=== PATIENT | male | born 1945 | race American Indian/Alaskan Native ===

== ENCOUNTER 2016-11-08 14:30 | Emergency (ER) | payer MEDICARE, OTHER ==
[2016-11-08 14:43] VITALS: BP 107/64
--- NOTE | 2016-11-08 16:13 | Emergency Department Report ---
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 Patient states he has a primary care doctor that takes care of him Dr. 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 Patient states he has not been taking his cholcris for the past week but took a dose today when he started to feel some pain. Patient states he went to his metal sprayer production yesterday but she was closed. She states pain is throbbing in nature and worsened with walking. Patient states when he walks he feels the pain a bit more.Patient also states he is a diabetic on medication as wall as tension on medication. Patient denies fever/chills/nausea/vomiting/abdominal pain/chest pain/and no other Problems. ED Past Medical Hx - Past Medical History Hx Hypertension: Yes Hx Heart Attack/AMI: Yes (2003) Hx Diabetes: Yes Hx GERD: Yes Hx Renal Disease: No Hx Arthritis: Yes Hx Seizures: No Hx Asthma: Yes (BREATHING [place] PRN) Hx COPD: Yes Additional medical history: gout - Surgical History Hx Pacemaker: No Hx Internal Defibrillator: No Additional Surgical History: cardiac ablation, hernia surg and epididymis surgery. PROSTATE SURGERY - Social History Smoking Status: Former Smoker Substance Use Type: Alcohol, Prescribed - Medications Home Medications: Home Medications Medication Instructions Recorded Confirmed Last Taken Type ALBUTEROL Inhaler [ProAir HFA 2 puff IH QID PRN 09/08/13 08/21/14 07/21/14 History Inhaler] Aspirin [Aspirin BABY CHEW TAB] 81 mg PO QDAY 09/08/13 08/14/14 02/28/14 History Atenolol [Tenormin] 50 mg PO DAILY 09/08/13 08/21/14 08/21/14 05:15 History Fluticasone/Salmeterol [Advair 1 puff IH BID 09/08/13 08/21/14 08/18/14 History Diskus 250-50 mcg] Metformin HCl [metFORMIN ER] 1,000 mg PO QDAY 09/08/13 08/21/14 08/20/14 07:30 History Sildenafil Citrate [Viagra] 100 mg PO QDAY PRN 09/08/13 08/21/14 08/15/14 History Tiotropium [Spiriva] 18 mcg IH QDAY 09/08/13 08/21/14 08/20/14 History Valsartan [Diovan] 320 mg PO DAILY 09/08/13 08/21/14 08/21/14 05:15 History Allopurinol [Zyloprim] 300 mg PO QDAY 11/29/13 08/14/14 04/24/14 History Cyanocobalamin (Vitamin B-12) 1 1000units IJNOT IV [id number] 08/14/14 08/14/14 07/03/14 History [B-12] Esomeprazole Magnesium [NexIUM] 1 tab PO DAILY 08/14/14 08/21/14 08/20/14 History Fexofenadine/Pseudoephedrine 1 tab PO DAILY 08/14/14 08/21/14 08/20/14 History [Chelsey-D 24 Hour Tablet] amLODIPine [Norvasc] 10 mg PO DAILY 08/14/14 08/21/14 08/21/14 05:15 History predniSONE [Deltasone] 10 mg PO QDAY #5 tab 11/08/16 Unknown Rx traMADol [Ultram 50 MG tab] 50 mg PO Q6HR PRN #30 tablet 11/08/16 Unknown Rx ED Review of Systems ROS: Stated complaint: GOUT Other details as noted in HPI Constitutional: denies: chills, fever Eyes: denies: eye pain, eye discharge, vision change ENT: denies: ear pain, throat pain Respiratory: denies: cough, shortness of breath, wheezing Cardiovascular: denies: chest pain, palpitations Endocrine: no symptoms reported Gastrointestinal: denies: abdominal pain, nausea, diarrhea, melena Genitourinary: denies: urgency, dysuria, hematuria, testicular pain, testicular mass Musculoskeletal: arthralgia. denies: back pain, joint swelling Skin: denies: rash, lesions Neurological: denies: headache, weakness, numbness, paresthesias, confusion Psychiatric: denies: anxiety, depression Hematological/Lymphatic: denies: easy bleeding, easy bruising Physical Exam - Physical Exam Vital Signs: Vital Signs 11/08/16 14:37 Temperature 98.5 F Pulse Rate 66 Respiratory 17 Rate Blood Pressure 107/64 O2 Sat by Pulse 95 Oximetry Physical Exam: GENERAL: Alert and oriented x3, no apparent distress, Normal Gait, atraumatic. HEAD: Head is normocephalic and a-traumatic. EYES: Extra ocular muscles are intact. Pupils are equal, round, and reactive to light and accommodation. EARS: symetrical, atraumatic, non tender, ear canal clear and moderate cerumen, tympanic membrance non inflamed. gross auditory nml bilaterally. NOSE: Nose symetrical, Nontender,Nares appeared normal. MOUTH:Mouth is well hydrated and without lesions. Patent airways. NECK: Supple. Non edematous, No carotid bruits. No lymphadenopathy or thyromegaly. LUNGS: Symetrical with respiration, No wheezing, no rales or crackles, CTAB. HEART: S1, S2 present, regular rate and rhythm without murmur, no rubs, no gallops. ABDOMEN: No organomegaly was noted,Positive bowel sounds, soft, and non- distended. . Nontender to palpation on all Quadrants, NO CVA tenderness. EXTREMITIES/MUSCULOSKELETAL: No cyanosis, clubbing, rash, lesions or edema. Full ROM bilaterally. UE/LE Pulses 2+ bilaterally. LE and UE 5+ strength bilaterally. Knees nontender to palpation. Patient has full range of motion in the knees and ankle. Nontender to palpation of the ankle. Knees nonedematous, nonerythematous, no fluid palpated. NEUROLOGIC: No focal Deficit, Cranial nerves II through XII are grossly intact. No loss of sensation, PSYCHIATRIC: Mood is congruent with affect, denies suicidal or homicidal ideations. SKIN: Warm and dry, No lesions, No ulceration or induration present. ED Course Vital Signs 11/08/16 14:37 Temperature 98.5 F Pulse Rate 66 Respiratory 17 Rate Blood Pressure 107/64 O2 Sat by Pulse 95 Oximetry ED Medical Decision Making - Medical Decision Making 71-year-old male presents with knee pain. ED course: Patient received Solu-Medrol 40 mg IM and tramadol for pain. Discussed with the patient to follow up with metal sprayer production Patient states he we will follow up and call the office on Thursday to make an appointment. Discussed with patient resting and no stress on the foot. Discussed to medication of a couple of days of prednisone and tramadol for pain. Discussed the patient's symptoms worsen or new symptoms arise to return to ED. Patient is in no acute distress or respiratory distress. Vital signs are stable. Critical care attestation.: If time is entered above; I have spent that time in minutes in the direct care of this critically ill patient, excluding procedure time. ED Disposition Clinical Impression: Knee pain, chronic Qualifiers: Laterality: left Qualified Code(s): M25.562 - Pain in left knee; G89.29 - Other chronic pain Disposition: DISCHARGED TO HOME OR SELFCARE Is pt being admited?: No Does the pt Need Aspirin: No Condition: Stable Instructions: Arthralgia (ED) Additional Instructions: Follow-up with her primary care physician. 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 Prescriptions: predniSONE [Deltasone] 10 mg PO QDAY #5 tab traMADol [Ultram 50 MG tab] 50 mg PO Q6HR PRN #30 tablet PRN Reason: Pain Referrals: PRIMARY MD ANA MARÍA [Primary Care Provider] - 3-5 Days DRE ATKINSON MD [Referring] - 3-5 Days Forms: Work/School Release Form(ED), Accompanied Note Time of Disposition: 17:28
[2016-11-08] MEDS ORDERED: ULTRAM PO ONE (16:36)
== END 2016-11-08 17:48 | disposition home or self-care (01) ==
LOC: ED 14:30
DX: M25.562 Pain in left knee (principal); G89.29 Other chronic pain; I10 Essential (primary) hypertension; I25.2 Old myocardial infarction; E11.9 Type 2 diabetes mellitus without complications; K21.9 Gastro-esophageal reflux disease without esophagitis; M19.90 Unspecified osteoarthritis, unspecified site; J45.909 Unspecified asthma, uncomplicated; J44.9 Chronic obstructive pulmonary disease, unspecified; Z87.891 Personal history of nicotine dependence; Z79.82 Long term (current) use of aspirin
CPT/HCPCS: 96372; 99282; J2920

== ENCOUNTER 2017-01-03 13:31 | Emergency (ER) | payer MEDICARE, OTHER ==
[2017-01-03] MEDS ORDERED: TORADOL IM ONE (17:24)
[2017-01-03] MEDS ORDERED: DECADRON IM STA (17:24)
[2017-01-03] MEDS ORDERED: PERCOCET 5/325 PO ONE (17:24)
--- NOTE | 2017-01-03 18:51 | Emergency Department Report ---
Entered by RICHARD CRUZ, acting as scribe for BROOKE GUZMAN PA. ED Lower Extremity HPI - General Chief Complaint: Extremity Injury, Lower Stated Complaint: LEFT KNEE PAIN Time Seen by Provider: 01/03/17 16:19 Source: patient, family Mode of arrival: Ambulatory Limitations: No Limitations, Physical Limitation - History of Present Illness Initial Comments: 71 y/o male with a PMHx HTN, ID, IDDM, GERD, arthritis, asthma, COPD, and gout presents to the ED c/o a gout flare-up in left knee that began yesterday morning at 03:00. Rates associated left knee pain a 9/10 in severity. Associated symptoms include left knee swelling, but he denies numbness, tingling , fever, and chills. Notes pain worsens with weight bearing, movement, and palpation. Notes previous Hx of similar symptoms in left knee. He reports his last gout flare-up was 2 months ago. Patient states that he is aware of the diet to avoid gout flare-ups, but notes he ate calhoun 2 days ago. He states he is ambulatory with a can due to left knee pain. Denies taking any medication for pain. Allergic to ampicillin and penicillin. Patient said he has Colcrys at home but physician had called and told them to stop it. MD Complaint: other (left knee gout flare-up) Onset/Timin -: days(s) Injury: Knee: Left (pain and swelling. 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 denies: snap/pop sensation, numbness, tingling - Related Data Home Medications Medication Instructions Recorded Confirmed Last Taken ALBUTEROL Inhaler [ProAir HFA 2 puff IH QID PRN 09/08/13 08/21/14 07/21/14 Inhaler] Aspirin [Aspirin BABY CHEW TAB] 81 mg PO QDAY 09/08/13 08/14/14 02/28/14 Atenolol [Tenormin] 50 mg PO DAILY 09/08/13 08/21/14 08/21/14 05:15 Fluticasone/Salmeterol [Advair 1 puff IH BID 09/08/13 08/21/14 08/18/14 Diskus 250-50 mcg] Metformin HCl [metFORMIN ER] 1,000 mg PO QDAY 09/08/13 08/21/14 08/20/14 07:30 Sildenafil Citrate [Viagra] 100 mg PO QDAY PRN 09/08/13 08/21/14 08/15/14 Tiotropium [Spiriva] 18 mcg IH QDAY 09/08/13 08/21/14 08/20/14 Valsartan [Diovan] 320 mg PO DAILY 09/08/13 08/21/14 08/21/14 05:15 Allopurinol [Zyloprim] 300 mg PO QDAY 11/29/13 08/14/14 04/24/14 Cyanocobalamin (Vitamin B-12) 1 1000units IJNOT IV [id number] 08/14/14 08/14/14 07/03/14 [B-12] Esomeprazole Magnesium [NexIUM] 1 tab PO DAILY 08/14/14 08/21/14 08/20/14 Fexofenadine/Pseudoephedrine 1 tab PO DAILY 08/14/14 08/21/14 08/20/14 [Chelsey-D 24 Hour Tablet] amLODIPine [Norvasc] 10 mg PO DAILY 08/14/14 08/21/14 08/21/14 05:15 Previous Rx's Medication Instructions Recorded Last Taken Type predniSONE [Deltasone] 20 mg PO QDAY #10 tab 01/03/17 Unknown Rx traMADol [Ultram 50 MG tab] 50 mg PO Q6HR PRN #20 tablet 01/03/17 Unknown Rx Allergies Allergy/AdvReac Type Severity Reaction Status Date / Time ampicillin Allergy Angioedema Verified 11/08/16 14:42 Penicillins Allergy Swelling Verified 11/08/16 14:42 ED Review of Systems Comment: All other systems reviewed and negative Constitutional: no symptoms reported. denies: chills, fever, weakness, other ( tingling) Respiratory: no symptoms reported. denies: cough, orthopnea, shortness of breath, SOB with exertion, SOB at rest, stridor, wheezing Cardiovascular: denies: chest pain, palpitations, edema, syncope Endocrine: no symptoms reported Gastrointestinal: abdominal pain. denies: nausea, vomiting Musculoskeletal: joint swelling (left knee), arthralgia (left knee pain). denies: back pain, myalgia Skin: denies: rash Neurological: abnormal gait (due to gout flareup. He is walking with a cane). denies: headache, weakness, numbness, paresthesias, confusion, vertigo ED Past Medical Hx - Past Medical History Previous Medical History?: Yes Hx Hypertension: Yes Hx Heart Attack/AMI: Yes (2003) Hx Diabetes: Yes Hx GERD: Yes Hx Renal Disease: No Hx Arthritis: Yes Hx Seizures: No Hx Asthma: Yes (BREATHING [place] PRN) Hx COPD: Yes Additional medical history: gout - Surgical History Past Surgical History?: Yes Hx Pacemaker: No Hx Internal Defibrillator: No Additional Surgical History: cardiac ablation, hernia surg and epididymis surgery. PROSTATE SURGERY - Family History Family history: hypertension - Social History Smoking Status: Never Smoker Substance Use Type: Alcohol - Medications Home Medications: Home Medications Medication Instructions Recorded Confirmed Last Taken Type ALBUTEROL Inhaler [ProAir HFA 2 puff IH QID PRN 09/08/13 08/21/14 07/21/14 History Inhaler] Aspirin [Aspirin BABY CHEW TAB] 81 mg PO QDAY 09/08/13 08/14/14 02/28/14 History Atenolol [Tenormin] 50 mg PO DAILY 09/08/13 08/21/14 08/21/14 05:15 History Fluticasone/Salmeterol [Advair 1 puff IH BID 09/08/13 08/21/14 08/18/14 History Diskus 250-50 mcg] Metformin HCl [metFORMIN ER] 1,000 mg PO QDAY 09/08/13 08/21/14 08/20/14 07:30 History Sildenafil Citrate [Viagra] 100 mg PO QDAY PRN 09/08/13 08/21/14 08/15/14 History Tiotropium [Spiriva] 18 mcg IH QDAY 09/08/13 08/21/14 08/20/14 History Valsartan [Diovan] 320 mg PO DAILY 09/08/13 08/21/14 08/21/14 05:15 History Allopurinol [Zyloprim] 300 mg PO QDAY 11/29/13 08/14/14 04/24/14 History Cyanocobalamin (Vitamin B-12) 1 1000units IJNOT IV [id number] 08/14/14 08/14/14 07/03/14 History [B-12] Esomeprazole Magnesium [NexIUM] 1 tab PO DAILY 08/14/14 08/21/14 08/20/14 History Fexofenadine/Pseudoephedrine 1 tab PO DAILY 08/14/14 08/21/14 08/20/14 History [Chelsey-D 24 Hour Tablet] amLODIPine [Norvasc] 10 mg PO DAILY 08/14/14 08/21/14 08/21/14 05:15 History predniSONE [Deltasone] 20 mg PO QDAY #10 tab 01/03/17 Unknown Rx traMADol [Ultram 50 MG tab] 50 mg PO Q6HR PRN #20 tablet 01/03/17 Unknown Rx ED Physical Exam - General Limitations: No Limitations General appearance: alert, in no apparent distress - Head Head exam: Present: atraumatic, normocephalic, normal inspection - Eye Eye exam: Present: normal appearance, PERRL, EOMI Pupils: Present: normal accommodation - ENT ENT exam: Present: normal exam, normal orophraynx, mucous membranes moist, normal external ear exam - Neck Neck exam: Present: normal inspection (supple), full ROM. Absent: tenderness, meningismus, lymphadenopathy - Respiratory Respiratory exam: Present: normal lung sounds bilaterally (no adventitious sounds). Absent: respiratory distress, wheezes, rales, rhonchi, stridor, accessory muscle use, decreased breath sounds - Cardiovascular Cardiovascular Exam: Present: regular rate, normal rhythm, normal heart sounds - GI/Abdominal GI/Abdominal exam: Present: soft, normal bowel sounds (present in all quadrants) . Absent: distended, tenderness, guarding, rebound, rigid - Extremities Exam Extremities exam: Present: normal inspection, full ROM (limited left knee flexion motion), tenderness (left knee), normal capillary refill, joint swelling (moderate left knee swelling), other (no clubbing cyanosis or swelling present to extremities except for his left knee. 2+ pulses present to extremities.). Absent: calf tenderness - Expanded Lower Extremity Exam Left Hip exam: Present: normal inspection, full ROM, pelvic stability. Absent: tenderness, swelling, abrasion, laceration, ecchymosis, deformity, crepidus, dislocation, erythema, external rotation, internal rotation, shortening Upper Leg exam: Present: normal inspection, full ROM. Absent: tenderness, swelling, abrasion, laceration, ecchymosis, deformity, crepidus, dislocation, erythema Knee exam: Present: full ROM (limited flexion motion due to left knee pain), tenderness (left knee tenderness), swelling (moderate left knee swelling), erythema (mild erythema), full knee extension. Absent: abrasion, laceration, ecchymosis, deformity, crepidus, dislocation, effusion (no ballottement) Lower Leg exam: Present: normal inspection, full ROM. Absent: tenderness, swelling, abrasion, laceration, ecchymosis, deformity, crepidus, dislocation, erythema, palpable cord, Grant's sign Ankle exam: Present: normal inspection, full ROM. Absent: tenderness, swelling , abrasion, laceration, ecchymosis, deformity, crepidus, dislocation, erythema, anterior draw sign Foot/Toe exam: Present: normal inspection, full ROM. Absent: tenderness, swelling, abrasion, laceration, ecchymosis, deformity, crepidus, dislocation, erythema, amputation, puncture wound, foreign body, calcaneal tenderness, tenderness at base of 5th metatarsal, nail avulsion, subungual hematoma Neuro vascular tendon exam: Present: no vascular compromise, motor deficit ( strength to left lower extremity decreased due to knee pain). Absent: pulse deficit, abnormal cap refill, sensory deficit, tendon deficit, extremity cold to touch, pallor, abnormal 2-point discrimination, foot drop, peroneal nerve deficit, significant pain with passive ROM of distal joint Gait: Positive: observed and limited by pain (ambulatory with the use of a cane) - Back Exam Back exam: Present: normal inspection, full ROM - Neurological Exam Neurological exam: Present: alert, oriented X3, abnormal gait (limited gait due to left knee pain. Ambulatory with a cane.) - Psychiatric Psychiatric exam: Present: normal affect, normal mood - Skin Skin exam: Present: warm, dry, intact, erythema (left knee). Absent: rash, abrasion, ecchymosis ED Course Vital Signs 05/20/17 14:06 Temperature 98.2 F Pulse Rate 80 Respiratory 18 Rate Blood Pressure 136/73 O2 Sat by Pulse 99 Oximetry - Reevaluation(s) Reevaluation #1: 01/03/17 18:44 Patient given Decadron 10 mg IM, Toradol 30 mg IM and Percocet 5/325 2 tablets by mouth for got fever. ED Lower Extremity MDM - Medical Decision Making ED course: Patient with regards to left knee with similar incident to left knee in the past. Her last flareup was 2 months ago when he came here and was treated. Patient given Toradol 30 mg IM, and Decadron 10 mg IM and Percocet 5/ 325 mg by mouth in emergency room. Patient feeling better and discharged home with prescription for prednisone and Ultram. I told him to check his blister more frequently bodies on the prednisone over 5 days.. I also told him to follow up with his primary care physician on Thursday. Condition discharged home with his in stable condition. ED Disposition Clinical Impression: Arthralgia of left knee Gout attack Qualifiers: Gout site: knee Gout etiology: unspecified cause Laterality: left Qualified Code(s): M10.9 - Gout, unspecified Disposition: DISCHARGED TO HOME OR SELFCARE Is pt being admited?: No Does the pt Need Aspirin: No Condition: Stable Instructions: Arthralgia (ED), Acute Gouty Arthritis (ED), Low Purine Diet (ED) Additional Instructions: Please state medication as prescribed Follow up with Primary care physician in 2 days Avoid food that is high in.. See discharge instruction paperwork for information Prescriptions: predniSONE [Deltasone] 20 mg PO QDAY #10 tab traMADol [Ultram 50 MG tab] 50 mg PO Q6HR PRN #20 tablet PRN Reason: Pain Referrals: PRIMARY CARE, [Primary Care Provider] - 01/03/17 6:51 pm This documentation as recorded by the NANCY thomas JASMINE,accurately reflects the service I personally performed and the decisions made by me,BROOKE GUZMAN PA.
[2017-01-03 19:09] VITALS: BP 138/76
== END 2017-01-03 19:10 | disposition home or self-care (01) ==
LOC: ED 13:31
DX: M10.9 Gout, unspecified (principal); I10 Essential (primary) hypertension; I25.2 Old myocardial infarction; E11.9 Type 2 diabetes mellitus without complications; K21.9 Gastro-esophageal reflux disease without esophagitis; M19.90 Unspecified osteoarthritis, unspecified site; J44.9 Chronic obstructive pulmonary disease, unspecified; J45.909 Unspecified asthma, uncomplicated; Z88.0 Allergy status to penicillin; Z88.1 Allergy status to other antibiotic agents
CPT/HCPCS: 96372; 99282; J1100; J1885

== ENCOUNTER 2017-05-17 07:11 | Emergency (ER) | payer MEDICARE, OTHER ==
--- NOTE | 2017-05-17 09:55 | Emergency Department Report ---
ED Extremity Problem HPI - General Chief complaint: Extremity Problem,Nontraumatic Stated complaint: gout flare up Time Seen by Provider: 05/17/17 08:28 Source: patient Mode of arrival: Ambulatory Limitations: No Limitations - History of Present Illness MD Complaint: extremity pain - Related Data Home Medications Medication Instructions Recorded Confirmed Last Taken ALBUTEROL Inhaler [ProAir HFA 2 puff IH QID PRN 09/08/13 08/21/14 07/21/14 Inhaler] Aspirin [Aspirin BABY CHEW TAB] 81 mg PO QDAY 09/08/13 08/14/14 02/28/14 Atenolol [Tenormin] 50 mg PO DAILY 09/08/13 08/21/14 08/21/14 05:15 Fluticasone/Salmeterol [Advair 1 puff IH BID 09/08/13 08/21/14 08/18/14 Diskus 250-50 mcg] Metformin HCl [metFORMIN ER] 1,000 mg PO QDAY 09/08/13 08/21/14 08/20/14 07:30 Sildenafil Citrate [Viagra] 100 mg PO QDAY PRN 09/08/13 08/21/14 08/15/14 Tiotropium [Spiriva] 18 mcg IH QDAY 09/08/13 08/21/14 08/20/14 Valsartan [Diovan] 320 mg PO DAILY 09/08/13 08/21/14 08/21/14 05:15 Allopurinol [Zyloprim] 300 mg PO QDAY 11/29/13 08/14/14 04/24/14 Cyanocobalamin (Vitamin B-12) 1 1000units IJNOT IV [id number] 08/14/14 08/14/14 07/03/14 [B-12] Esomeprazole Magnesium [NexIUM] 1 tab PO DAILY 08/14/14 08/21/14 08/20/14 Fexofenadine/Pseudoephedrine 1 tab PO DAILY 08/14/14 08/21/14 08/20/14 [Chelsey-D 24 Hour Tablet] amLODIPine [Norvasc] 10 mg PO DAILY 08/14/14 08/21/14 08/21/14 05:15 Previous Rx's Medication Instructions Recorded Last Taken Type predniSONE [Deltasone] 20 mg PO QDAY #10 tab 01/03/17 Unknown Rx traMADol [Ultram 50 MG tab] 50 mg PO Q6HR PRN #20 tablet 01/03/17 Unknown Rx HYDROcodone/APAP 5-325 [[place] 1 each PO Q6HR PRN #15 tablet 05/17/17 Unknown Rx 5/325] predniSONE [Deltasone] 40 mg PO QDAY #10 tab 05/17/17 Unknown Rx Allergies Allergy/AdvReac Type Severity Reaction Status Date / Time ampicillin Allergy Angioedema Verified 11/08/16 14:42 Penicillins Allergy Swelling Verified 11/08/16 14:42 ED Review of Systems ROS: Stated complaint: gout flare up Other details as noted in HPI ED Past Medical Hx - Past Medical History Previous Medical History?: Yes Hx Hypertension: Yes Hx Heart Attack/AMI: Yes (2003) Hx Diabetes: Yes Hx GERD: Yes Hx Renal Disease: No Hx Arthritis: Yes Hx Seizures: No Hx Asthma: Yes (BREATHING [place] PRN) Hx COPD: Yes Additional medical history: gout - Surgical History Past Surgical History?: Yes Hx Pacemaker: No Hx Internal Defibrillator: No Additional Surgical History: cardiac ablation, hernia surg and epididymis surgery. PROSTATE SURGERY - Social History Smoking Status: Former Smoker Substance Use Type: Alcohol, Prescribed - Medications Home Medications: Home Medications Medication Instructions Recorded Confirmed Last Taken Type ALBUTEROL Inhaler [ProAir HFA 2 puff IH QID PRN 09/08/13 08/21/14 07/21/14 History Inhaler] Aspirin [Aspirin BABY CHEW TAB] 81 mg PO QDAY 09/08/13 08/14/14 02/28/14 History Atenolol [Tenormin] 50 mg PO DAILY 09/08/13 08/21/14 08/21/14 05:15 History Fluticasone/Salmeterol [Advair 1 puff IH BID 09/08/13 08/21/14 08/18/14 History Diskus 250-50 mcg] Metformin HCl [metFORMIN ER] 1,000 mg PO QDAY 09/08/13 08/21/14 08/20/14 07:30 History Sildenafil Citrate [Viagra] 100 mg PO QDAY PRN 09/08/13 08/21/14 08/15/14 History Tiotropium [Spiriva] 18 mcg IH QDAY 09/08/13 08/21/14 08/20/14 History Valsartan [Diovan] 320 mg PO DAILY 09/08/13 08/21/14 08/21/14 05:15 History Allopurinol [Zyloprim] 300 mg PO QDAY 11/29/13 08/14/14 04/24/14 History Cyanocobalamin (Vitamin B-12) 1 1000units IJNOT IV [id number] 08/14/14 08/14/14 07/03/14 History [B-12] Esomeprazole Magnesium [NexIUM] 1 tab PO DAILY 08/14/14 08/21/14 08/20/14 History Fexofenadine/Pseudoephedrine 1 tab PO DAILY 08/14/14 08/21/14 08/20/14 History [Cehlsey-D 24 Hour Tablet] amLODIPine [Norvasc] 10 mg PO DAILY 08/14/14 08/21/14 08/21/14 05:15 History predniSONE [Deltasone] 20 mg PO QDAY #10 tab 01/03/17 Unknown Rx traMADol [Ultram 50 MG tab] 50 mg PO Q6HR PRN #20 tablet 01/03/17 Unknown Rx HYDROcodone/APAP 5-325 [[place] 1 each PO Q6HR PRN #15 tablet 05/17/17 Unknown Rx 5/325] predniSONE [Deltasone] 40 mg PO QDAY #10 tab 05/17/17 Unknown Rx ED Physical Exam - General Limitations: No Limitations ED Course Vital Signs 05/17/17 05/17/17 07:16 12:06 Temperature 97.9 F Pulse Rate 75 72 Respiratory 18 18 Rate Blood Pressure 132/66 Blood Pressure 131/60 [Right] O2 Sat by Pulse 94 99 Oximetry ED Medical Decision Making - Lab Data Result diagrams: 05/17/17 10:05 05/17/17 10:05 - Medical Decision Making A/P: Acute gout flare 1- 2- 3- 4- Critical care attestation.: If time is entered above; I have spent that time in minutes in the direct care of this critically ill patient, excluding procedure time. ED Disposition Clinical Impression: Hand pain Qualifiers: Laterality: bilateral Qualified Code(s): M79.641 - Pain in right hand Left knee pain Qualifiers: Chronicity: acute Qualified Code(s): M25.562 - Pain in left knee Disposition: TO HOME OR SELFCARE Is pt being admited?: No Does the pt Need Aspirin: No Condition: Stable Instructions: Acute Gouty Arthritis (ED), Arthralgia (ED) Prescriptions: HYDROcodone/APAP 5-325 [[place] 5/325] 1 each PO Q6HR PRN #15 tablet PRN Reason: Pain predniSONE [Deltasone] 40 mg PO QDAY #10 tab Referrals: TREY CULLEN MD [Staff Physician] - 3-5 Days [facility] [Provider Group] - 3-5 Days SAMIR WINTERS JR, MD [Staff Physician] - 3-5 Days Forms: Accompanied Note, Work/School Release Form(ED) Time of Disposition: 11:49
[2017-05-17] MEDS ORDERED: PERCOCET 5/325 PO ONE (09:56)
[2017-05-17 10:24] LABS: Basophils % (Auto) 0.4 % (0.0-1.8); Eosinophils % (Auto) 0.8 % (0.0-4.3); Hematocrit 47.6 % (35.5-45.6); Hemoglobin 15.2 gm/dl (11.8-15.2); Mean Corpuscular HGB Conc 32 % (32-34); Mean Corpuscular Hemoglobin 28 pg (28-32); Mean Corpuscular Volume 86 fl (84-94); Platelet Count 240 K/mm3 (140-440); Red Blood Count 5.52 M/mm3 (3.65-5.03); Red Cell Distribution Width 15.5 % (13.2-15.2); White Blood Count 16.6 K/mm3 (4.5-11.0)
[2017-05-17 10:32] LABS: Anion Gap 20 mmol/L; BUN/Creatinine Ratio 19.23; Blood Urea Nitrogen 25 mg/dL (9-20); Calcium 9.4 mg/dL (8.4-10.2); Carbon Dioxide 26 mmol/L (22-30); Chloride 91.9 mmol/L (98-107); Glucose 116 mg/dL (75-100); Potassium 3.7 mmol/L (3.6-5.0); Sodium 134 mmol/L (137-145)
--- NOTE | 2017-05-17 10:56 | XRay Report ---
LEFT KNEE, 2 VIEWS History: Left knee pain. Findings: A large joint effusion is identified on the lateral image. There are moderate osteoarthritic changes in the medial compartment and patellofemoral space. Chronic injury to the MCL is suspected. No fracture or bone lesion. Impression: Osteoarthritic changes. Joint effusion. No acute process noted.
--- NOTE | 2017-05-17 10:57 | XRay Report ---
Bilateral hands, 3 views: The bony architecture is intact. Bony alignment is normal. No soft tissue abnormalities are seen. The joint spaces appear preserved. IMPRESSION: Unremarkable bilateral hands.
[2017-05-17 12:08] VITALS: BP 131/60
== END 2017-05-17 12:06 | disposition home or self-care (01) ==
LOC: ED 07:11
DX: M25.562 Pain in left knee (principal); M79.641 Pain in right hand; I10 Essential (primary) hypertension; I25.2 Old myocardial infarction; E11.9 Type 2 diabetes mellitus without complications; K21.9 Gastro-esophageal reflux disease without esophagitis; M19.90 Unspecified osteoarthritis, unspecified site; J44.9 Chronic obstructive pulmonary disease, unspecified; Z79.82 Long term (current) use of aspirin; Z87.891 Personal history of nicotine dependence; Z88.0 Allergy status to penicillin; Z88.1 Allergy status to other antibiotic agents; Z98.890 Other specified postprocedural states
CPT/HCPCS: 36415; 80048; 85025; 99284

== ENCOUNTER 2017-08-19 11:05 | Emergency (ER) | payer MEDICARE, OTHER ==
[2017-08-19 12:43] VITALS: BP 153/76
[2017-08-19] MEDS ORDERED: DELTASONE PO ONE (16:36)
[2017-08-19] MEDS ORDERED: ULTRAM PO ONE (16:36)
--- NOTE | 2017-08-19 16:40 | Emergency Department Report ---
ED General Adult HPI - General Chief complaint: Pain General Stated complaint: GOUT PAIN Time Seen by Provider: 08/19/17 16:34 Source: patient Mode of arrival: Ambulatory Limitations: No Limitations - History of Present Illness Initial comments: Patient 72-year-old male history of hypertension and gout who presents for gout exacerbation of right knee patient gout control medicine however out for last month and cannot see PCP for another week and a half gout flare symptoms including pain swelling warm to touch right knee patient remains ambulatory but with pain patient states knee was tapped 1 month ago, patient denies fevers chills no chest pain or shortness of breath no malaise no change in appetite or activity Onset/Timin -: week(s) Location: right, lower extremity Radiation: non-radiation Severity scale (0 -10): 5 Quality: aching Consistency: constant Improves with: none Worsens with: movement, other (prolonged standing walking ) Associated Symptoms: denies: fever/chills, malaise, nausea/vomiting, weakness Treatments Prior to Arrival: none - Related Data Home Medications Medication Instructions Recorded Confirmed Last Taken ALBUTEROL Inhaler [ProAir HFA 2 puff IH QID PRN 09/08/13 08/21/14 07/21/14 Inhaler] Aspirin [Aspirin BABY CHEW TAB] 81 mg PO QDAY 09/08/13 08/14/14 02/28/14 Atenolol [Tenormin] 50 mg PO DAILY 09/08/13 08/21/14 08/21/14 05:15 Fluticasone/Salmeterol [Advair 1 puff IH BID 09/08/13 08/21/14 08/18/14 Diskus 250-50 mcg] Metformin HCl [metFORMIN ER] 1,000 mg PO QDAY 09/08/13 08/21/14 08/20/14 07:30 Sildenafil Citrate [Viagra] 100 mg PO QDAY PRN 09/08/13 08/21/14 08/15/14 Tiotropium [Spiriva] 18 mcg IH QDAY 09/08/13 08/21/14 08/20/14 Valsartan [Diovan] 320 mg PO DAILY 09/08/13 08/21/14 08/21/14 05:15 Allopurinol [Zyloprim] 300 mg PO QDAY 04/08/14/14 04/24/14 Cyanocobalamin (Vitamin B-12) 1 1000units IJNOT IV [id number] 08/14/14 08/14/14 07/03/14 [B-12] Esomeprazole Magnesium [NexIUM] 1 tab PO DAILY 08/14/14 08/21/14 08/20/14 Fexofenadine/Pseudoephedrine 1 tab PO DAILY 08/14/14 08/21/14 08/20/14 [Chelsey-D 24 Hour Tablet] amLODIPine [Norvasc] 10 mg PO DAILY 08/14/14 08/21/14 08/21/14 05:15 Previous Rx's Medication Instructions Recorded Last Taken Type predniSONE [Deltasone] 20 mg PO QDAY #10 tab 01/03/17 Unknown Rx traMADol [Ultram 50 MG tab] 50 mg PO Q6HR PRN #20 tablet 01/03/17 Unknown Rx HYDROcodone/APAP 5-325 [[place] 1 each PO Q6HR PRN #15 tablet 05/17/17 Unknown Rx 5/325] predniSONE [Deltasone] 40 mg PO QDAY #10 tab 05/17/17 Unknown Rx predniSONE [Deltasone] 40 mg PO DAILY #10 tablet 08/19/17 Unknown Rx traMADol [Ultram 50 MG tab] 50 mg PO Q8HR PRN #15 tablet 08/19/17 Unknown Rx Allergies Allergy/AdvReac Type Severity Reaction Status Date / Time ampicillin Allergy Angioedema Verified 11/08/16 14:42 Penicillins Allergy Swelling Verified 11/08/16 14:42 ED Review of Systems ROS: Stated complaint: GOUT PAIN Other details as noted in HPI Constitutional: denies: chills, fever Eyes: denies: eye pain, eye discharge, vision change ENT: denies: ear pain, throat pain Respiratory: denies: cough, shortness of breath, wheezing Cardiovascular: denies: chest pain, palpitations Endocrine: no symptoms reported Gastrointestinal: denies: abdominal pain, nausea, diarrhea Genitourinary: denies: urgency, dysuria Musculoskeletal: joint swelling, arthralgia. denies: back pain, myalgia Skin: denies: rash, lesions Neurological: denies: headache, weakness, paresthesias Psychiatric: denies: anxiety, depression Hematological/Lymphatic: denies: easy bleeding, easy bruising ED Past Medical Hx - Past Medical History Previous Medical History?: Yes Hx Hypertension: Yes Hx Heart Attack/AMI: Yes (2003) Hx Diabetes: Yes Hx GERD: Yes Hx Renal Disease: No Hx Arthritis: Yes Hx Seizures: No Hx Asthma: Yes (BREATHING [place] PRN) Hx COPD: Yes Additional medical history: gout - Surgical History Past Surgical History?: Yes Hx Pacemaker: No Hx Internal Defibrillator: No Additional Surgical History: cardiac ablation, hernia surg and epididymis surgery. PROSTATE SURGERY - Social History Smoking Status: Former Smoker Substance Use Type: Prescribed - Medications Home Medications: Home Medications Medication Instructions Recorded Confirmed Last Taken Type ALBUTEROL Inhaler [ProAir HFA 2 puff IH QID PRN 09/08/13 08/21/14 07/21/14 History Inhaler] Aspirin [Aspirin BABY CHEW TAB] 81 mg PO QDAY 09/08/13 08/14/14 02/28/14 History Atenolol [Tenormin] 50 mg PO DAILY 09/08/13 08/21/14 08/21/14 05:15 History Fluticasone/Salmeterol [Advair 1 puff IH BID 09/08/13 08/21/14 08/18/14 History Diskus 250-50 mcg] Metformin HCl [metFORMIN ER] 1,000 mg PO QDAY 09/08/13 08/21/14 08/20/14 07:30 History Sildenafil Citrate [Viagra] 100 mg PO QDAY PRN 09/08/13 08/21/14 08/15/14 History Tiotropium [Spiriva] 18 mcg IH QDAY 09/08/13 08/21/14 08/20/14 History Valsartan [Diovan] 320 mg PO DAILY 09/08/13 08/21/14 08/21/14 05:15 History Allopurinol [Zyloprim] 300 mg PO QDAY 11/29/13 08/14/14 04/24/14 History Cyanocobalamin (Vitamin B-12) 1 1000units IJNOT IV [id number] 08/14/14 08/14/14 07/03/14 History [B-12] Esomeprazole Magnesium [NexIUM] 1 tab PO DAILY 08/14/14 08/21/14 08/20/14 History Fexofenadine/Pseudoephedrine 1 tab PO DAILY 08/14/14 08/21/14 08/20/14 History [Chelsey-D 24 Hour Tablet] amLODIPine [Norvasc] 10 mg PO DAILY 08/14/14 08/21/14 08/21/14 05:15 History predniSONE [Deltasone] 20 mg PO QDAY #10 tab 01/03/17 Unknown Rx traMADol [Ultram 50 MG tab] 50 mg PO Q6HR PRN #20 tablet 01/03/17 Unknown Rx HYDROcodone/APAP 5-325 [[place] 1 each PO Q6HR PRN #15 tablet 05/17/17 Unknown Rx 5/325] predniSONE [Deltasone] 40 mg PO QDAY #10 tab 05/17/17 Unknown Rx predniSONE [Deltasone] 40 mg PO DAILY #10 tablet 08/19/17 Unknown Rx traMADol [Ultram 50 MG tab] 50 mg PO Q8HR PRN #15 tablet 08/19/17 Unknown Rx ED Physical Exam - General Limitations: No Limitations General appearance: alert, in no apparent distress - Head Head exam: Present: atraumatic, normocephalic - Eye Eye exam: Present: normal appearance - ENT ENT exam: Present: mucous membranes moist - Neck Neck exam: Present: normal inspection, full ROM. Absent: tenderness, lymphadenopathy, thyromegaly - Respiratory Respiratory exam: Present: normal lung sounds bilaterally. Absent: wheezes, rhonchi, chest wall tenderness - Cardiovascular Cardiovascular Exam: Present: regular rate, normal rhythm, normal heart sounds. Absent: systolic murmur, diastolic murmur, rubs, gallop - GI/Abdominal GI/Abdominal exam: Present: soft, normal bowel sounds. Absent: distended, tenderness, guarding, rebound, rigid, mass, bruit, hernia - Rectal Rectal exam: Present: deferred - Extremities Exam Extremities exam: Present: tenderness (right anterior knee ), normal capillary refill, joint swelling. Absent: calf tenderness - Expanded Lower Extremity Exam Right Knee exam: Present: tenderness (right anterior knee no deformity mild erythema warm to touch rom intact pain with rotation mild effusion palpable. pt maintains full knee extension), swelling, erythema, pain w/ pronation/supination , full knee extension. Absent: abrasion, laceration, ecchymosis, deformity, crepidus, dislocation, effusion, posterior draw sign, pain/laxity with valgus, pain/laxity with varus Lower Leg exam: Present: normal inspection, full ROM Ankle exam: Present: normal inspection, full ROM Foot/Toe exam: Present: normal inspection, full ROM Neuro vascular tendon exam: Present: no vascular compromise. Absent: pulse deficit, abnormal cap refill, motor deficit, sensory deficit, tendon deficit, extremity cold to touch, pallor, abnormal 2-point discrimination, decreased fine /light touch, foot drop, peroneal nerve deficit, significant pain with passive ROM of distal joint Gait: Positive: observed and limited by pain - Back Exam Back exam: Present: normal inspection, full ROM. Absent: tenderness, CVA tenderness (R), CVA tenderness (L), muscle spasm, paraspinal tenderness, vertebral tenderness, rash noted - Neurological Exam Neurological exam: Present: alert, oriented X3, CN II-XII intact, normal gait, reflexes normal. Absent: motor sensory deficit - Expanded Neurological Exam Expanded Patient oriented to: Present: person, place, time Speech: Present: fluid speech Cranial nerves: EOM's Intact: Normal, Gag Reflex: Normal, Tongue Deviation: Normal, Nystagmus: Normal, Facial Sensation: Normal Cerebellar function: Finger to Nose: Normal, Heel to Fernandez: Normal, Romberg: Normal Upper motor neuron: Owen Neglect: Normal, Pronator Drift: Normal, Babinski Sign : Normal, Sensory Extinction: Normal Sensory exam: Upper Extremity Light Touch: Normal, Upper Extremity Pin Prick: Normal, Upper Extremity Temperature: Normal, UE 2 Point Discrimination: Normal, Lower Extremity Light Touch: Normal, Lower Extremity Pin Prick: Normal, Lower Extremity Temperature: Normal, LE 2 Point Discrimination: Normal Motor strength exam: RUE: 5, LUE: 5, RLE: 5, LLE: 5 DTR: bicep (R): 2+, bicep (L): 2+, tricep (R): 2+, tricep (L): 2+, knee (R): 2+ , knee (L): 2+, ankle (R): 2+ Best Eye Response (Kaylynn): (4) open spontaneously Best Motor Response (Kaylynn): (6) obeys commands Best Verbal Response (Kaylynn): (5) oriented [place] Total: 15 - Psychiatric Psychiatric exam: Present: normal affect, normal mood - Skin Skin exam: Present: warm, dry, intact, normal color. Absent: rash ED Course Vital Signs 08/19/17 12:40 Temperature 98.7 F Pulse Rate 84 Respiratory 20 Rate Blood Pressure 153/76 O2 Sat by Pulse 96 Oximetry ED Medical Decision Making - Medical Decision Making Patient 72-year-old male history of hypertension and gout who presents for gout exacerbation of right knee patient gout control medicine however out for last month and cannot see PCP for another week and a half gout flare symptoms including pain swelling warm to touch right knee patient remains ambulatory but with pain patient states knee was tapped 1 month ago, patient denies fevers chills no chest pain or shortness of breath no malaise no change in appetite or activity, right anterior knee tenderness to palpation no deformity warm to touch pain with rotation pt maintain full knee extension there is no drawer mild effusion noted to palpation. plan: prednisone, ultram reassess reassessment :Pain is improved with prednisone and ultram po D/C plan: prednisone, ultram, and follow up with pcp as schedule din 2 days for reevaluation, pt verbalized agreement and understanding of discharge plan. Critical care attestation.: If time is entered above; I have spent that time in minutes in the direct care of this critically ill patient, excluding procedure time. ED Disposition Clinical Impression: Gout of right knee Qualifiers: Gout etiology: idiopathic Chronicity: acute Qualified Code(s): M10.061 - Idiopathic gout, right knee Disposition: TO HOME OR SELFCARE Is pt being admited?: No Does the pt Need Aspirin: No Condition: Good Instructions: Acute Gouty Arthritis (ED) Prescriptions: predniSONE [Deltasone] 40 mg PO DAILY #10 tablet traMADol [Ultram 50 MG tab] 50 mg PO Q8HR PRN #15 tablet PRN Reason: Pain Referrals: TRISTON YEPEZ MD [Primary Care Provider] - 3-5 Days Forms: Work/School Release Form(ED) Time of Disposition: 16:56
== END 2017-08-19 17:43 | disposition home or self-care (01) ==
LOC: ED 11:05
DX: M10.061 Idiopathic gout, right knee (principal); I10 Essential (primary) hypertension; I25.2 Old myocardial infarction; E11.9 Type 2 diabetes mellitus without complications; K21.9 Gastro-esophageal reflux disease without esophagitis; J45.909 Unspecified asthma, uncomplicated; J44.9 Chronic obstructive pulmonary disease, unspecified; Z87.891 Personal history of nicotine dependence; Z79.82 Long term (current) use of aspirin; Z88.0 Allergy status to penicillin; Z88.1 Allergy status to other antibiotic agents
CPT/HCPCS: 99282; J7512

== ENCOUNTER 2019-09-12 07:57 | Outpatient (CLI) | payer MEDICARE, OTHER ==
--- NOTE | 2019-09-12 09:21 | Fluoroscopy Report ---
Barium swallow Indication: R13.10 DYSHAGIA UNSPECIDIED TYPE. Technique: Single and double contrast barium technique utilized to evaluate the esophagus. Findings: No mucosal irregularity, mass, or mass effect. There was a distal stenosis near the GE yenny ction with failure of passage of a barium tablet over a span of at least 1 minute while drinking copi ous amounts of water. There were abnormal tertiary contractions as seen with dysmotility. No gastro esophageal reflux. Impression: 1. 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 2. Mild esophageal dysmotility. Fluoroscopic time: 2.1 minutes Number of fluoroscopic images: 14 Signer Name: Efrain Reilly MD Signed: 09/12/2019 9:17 AM Workstation Name: [id number]
--- NOTE | 2019-09-12 09:34 | Ultrasound Report ---
Limited soft tissue Ultrasound HISTORY: R22.9 SKIN NODULE. TECHNIQUE: Grayscale and color Doppler imaging performed. COMPARISON: None FINDINGS: Patient reports a palpable supraclavicular nodular area on the right. There is no mass, col lection, or adenopathy. IMPRESSION: Unremarkable exam. Signer Name: Efrain Reilly MD Signed: 09/12/2019 9:30 AM Workstation Name: [id number]
== END 2019-09-12 07:58 | disposition home or self-care (01) ==
LOC: US 07:57
PROVIDERS: ATTEND Family Medicine
DX: K22.2 Esophageal obstruction (principal); R22.9 Localized swelling, mass and lump, unspecified
CPT/HCPCS: 74220

== ENCOUNTER 2020-06-12 23:04 | Emergency (ER) | payer MEDICARE, OTHER ==
[2020-06-12] MEDS ORDERED: ASPIRIN 325 MG TAB PO ONE (23:23)
--- NOTE | 2020-06-13 00:24 | XRay Report ---
CHEST 1 VIEW 12:10 AM INDICATION / CLINICAL INFORMATION: Chest pain starting today. COMPARISON: 09/08/13. FINDINGS: SUPPORT DEVICES: None. HEART / MEDIASTINUM: There is mild cardiomegaly with a left ventricular configuration. Pulmonary vasc ulature is normal. The aorta is mildly tortuous without aneurysm. LUNGS / PLEURA: No significant pulmonary or pleural abnormality. No pneumothorax. ADDITIONAL FINDINGS: No significant additional findings. IMPRESSION: No acute abnormality or significant change. Signer Name: Marlon Gilliam MD Signed: 06/13/2020 12:20 AM Workstation Name: [id number]
[2020-06-13 00:37] LABS: Basophils # (Auto) 0.1 K/mm3 (0.0-0.1); Eosinophils # (Auto) 0.6 K/mm3 (0.0-0.4); Eosinophils % (Auto) 8.1 % (0.0-4.3); Hematocrit 45.9 % (35.5-45.6); Hemoglobin 15.1 gm/dl (11.8-15.2); Lymphocytes # (Auto) 1.7 K/mm3 (1.2-5.4); Lymphocytes % (Auto) 21.8 % (13.4-35.0); Mean Corpuscular HGB Conc 33 % (32-34); Mean Corpuscular Volume 89 fl (84-94); Monocytes # (Auto) 1.1 K/mm3 (0.0-0.8); Monocytes % (Auto) 13.9 % (0.0-7.3); Platelet Count 249 K/mm3 (140-440); Red Blood Count 5.16 M/mm3 (3.65-5.03); Red Cell Distribution Width 14.1 % (13.2-15.2)
[2020-06-13 00:52] LABS: BUN/Creatinine Ratio 11; Blood Urea Nitrogen 14 mg/dL (9-20); Calcium 9.1 mg/dL (8.4-10.2); Hemolysis Index 20
[2020-06-13] MEDS ORDERED: KETOROLAC 30 MG/1 ML INJ IM ONE (02:23)
--- NOTE | 2020-06-13 02:29 | Emergency Department Report ---
ED Chest Pain HPI - General Chief Complaint: Chest Pain Stated Complaint: CHEST PAIN Time Seen by Provider: 06/13/20 02:16 Source: patient Mode of arrival: Ambulatory Limitations: No Limitations - History of Present Illness Initial Comments: This is a 74-year-old -[place] male presents to the emergency department with complaint of some intermittent left-sided chest pain that mostly occurs when he is moving his torso or his left upper extremity in certain positions. When the patient is resting, not moving, he does not have any pain. The patient says "I think it has something to do with my muscle." He has not taken anything for symptoms prior to presentation. The patient has a past medical history that includes asthma, COPD not oxygen dependent, diabetes, GERD, hypertension, previous cardiac ablation for atrial flutter, and a previous NM without coronary stents. The patient's primary care physician is Dr. Triston Angeles. His cardi ologist is Dr. Perez. No recent travel or sick contacts at home. He denies any fever, shortness of breath, nausea, vomiting, back pain, lower extremity swelling, diaphoresis. - Related Data Home Medications Medication Instructions Recorded Confirmed Last Taken Albuterol Mdi (or & Nicu Only) 2 puff IH QID PRN 09/08/13 08/21/14 07/21/14 [ProAir HFA Inhaler] Aspirin [Aspirin BABY CHEW TAB] 81 mg PO QDAY 09/08/13 08/14/14 02/28/14 Fluticasone/Salmeterol [Advair 1 puff IH BID 09/08/13 08/21/14 08/18/14 Diskus 250-50 mcg] Metformin HCl [metFORMIN ER] 1,000 mg PO QDAY 09/08/13 08/21/14 08/20/14 07:30 Sildenafil Citrate [Viagra] 100 mg PO QDAY PRN 09/08/13 08/21/14 08/15/14 Tiotropium [Spiriva] 18 mcg IH QDAY 09/08/13 08/21/14 08/20/14 Valsartan [Diovan] 320 mg PO DAILY 09/08/13 08/21/14 08/21/14 05:15 atenoloL [Tenormin] 50 mg PO DAILY 09/08/13 08/21/14 08/21/14 05:15 allopurinoL [Zyloprim] 300 mg PO QDAY 11/29/13 08/14/14 04/24/14 Cyanocobalamin (Vitamin B-12) 1 1000units IJNOT IV [id number] 08/14/14 08/14/14 07/03/14 [B-12] Esomeprazole Magnesium [NexIUM] 1 tab PO DAILY 08/14/14 08/21/14 08/20/14 Fexofenadine/Pseudoephedrine 1 tab PO DAILY 08/14/14 08/21/14 08/20/14 [Chelsey-D 24 Hour Tablet] amLODIPine 10 mg PO DAILY 08/14/14 08/21/14 08/21/14 05:15 Previous Rx's Medication Instructions Recorded Last Taken Type predniSONE [Deltasone] 20 mg PO QDAY #10 tab 01/03/17 Unknown Rx traMADoL [Ultram 50 MG tab] 50 mg PO Q6HR PRN #20 tablet 01/03/17 Unknown Rx HYDROcodone/APAP 5-325 [[place] 1 each PO Q6HR PRN #15 tablet 05/17/17 Unknown Rx 5/325] predniSONE [Deltasone] 40 mg PO QDAY #10 tab 05/17/17 Unknown Rx predniSONE [Deltasone] 40 mg PO DAILY #10 tablet 08/19/17 Unknown Rx traMADoL [Ultram 50 MG tab] 50 mg PO Q8HR PRN #15 tablet 08/19/17 Unknown Rx Allergies Allergy/AdvReac Type Severity Reaction Status Date / Time ampicillin Allergy Angioedema Verified 11/08/16 14:42 Penicillins Allergy Swelling Verified 11/08/16 14:42 Heart Score - HEART Score History: Slightly suspicious EKG: Normal Age: > 65 Risk factors: > 3 risk factors or hx of atherosclerotic disease Troponin: < normal limit HEART Score: 4 - Critical Actions Critical Actions: 4-6 pts:12-16.6% risk of adverse cardiac event. Should be admitted ED Review of Systems ROS: Stated complaint: CHEST PAIN Other details as noted in HPI Comment: All other systems reviewed and negative Constitutional: denies: chills, fever Eyes: denies: eye pain, vision change ENT: denies: ear pain, throat pain Respiratory: denies: cough, shortness of breath Cardiovascular: chest pain. denies: palpitations Gastrointestinal: denies: abdominal pain, vomiting Genitourinary: denies: dysuria, discharge Musculoskeletal: denies: back pain, arthralgia Skin: denies: rash, lesions Neurological: denies: headache, weakness ED Past Medical Hx - Past Medical History Hx Hypertension: Yes Hx Heart Attack/AMI: Yes (2003) Hx Diabetes: Yes Hx GERD: Yes Hx Renal Disease: No Hx Arthritis: Yes Hx Seizures: No Hx Asthma: Yes (BREATHING [place] PRN) Hx COPD: Yes Additional medical history: gout - Surgical History Hx Pacemaker: No Hx Internal Defibrillator: No Additional Surgical History: cardiac ablation, hernia surg and epididymis surgery. PROSTATE SURGERY - Social History Smoking Status: Never Smoker Substance Use Type: None - Medications Home Medications: Home Medications Medication Instructions Recorded Confirmed Last Taken Type Albuterol Mdi (or & Nicu Only) 2 puff IH QID PRN 09/08/13 08/21/14 07/21/14 History [ProAir HFA Inhaler] Aspirin [Aspirin BABY CHEW TAB] 81 mg PO QDAY 09/08/13 08/14/14 02/28/14 History Fluticasone/Salmeterol [Advair 1 puff IH BID 09/08/13 08/21/14 08/18/14 History Diskus 250-50 mcg] Metformin HCl [metFORMIN ER] 1,000 mg PO QDAY 09/08/13 08/21/14 08/20/14 07:30 History Sildenafil Citrate [Viagra] 100 mg PO QDAY PRN 09/08/13 08/21/14 08/15/14 History Tiotropium [Spiriva] 18 mcg IH QDAY 09/08/13 08/21/14 08/20/14 History Valsartan [Diovan] 320 mg PO DAILY 09/08/13 08/21/14 08/21/14 05:15 History atenoloL [Tenormin] 50 mg PO DAILY 09/08/13 08/21/14 08/21/14 05:15 History allopurinoL [Zyloprim] 300 mg PO QDAY 11/29/13 08/14/14 04/24/14 History Cyanocobalamin (Vitamin B-12) 1 1000units IJNOT IV [id number] 08/14/14 08/14/14 07/03/14 History [B-12] Esomeprazole Magnesium [NexIUM] 1 tab PO DAILY 08/14/14 08/21/14 08/20/14 History Fexofenadine/Pseudoephedrine 1 tab PO DAILY 08/14/14 08/21/14 08/20/14 History [Chelsey-D 24 Hour Tablet] amLODIPine 10 mg PO DAILY 08/14/14 08/21/14 08/21/14 05:15 History predniSONE [Deltasone] 20 mg PO QDAY #10 tab 01/03/17 Unknown Rx traMADoL [Ultram 50 MG tab] 50 mg PO Q6HR PRN #20 tablet 01/03/17 Unknown Rx HYDROcodone/APAP 5-325 [[place] 1 each PO Q6HR PRN #15 tablet 05/17/17 Unknown Rx 5/325] predniSONE [Deltasone] 40 mg PO QDAY #10 tab 05/17/17 Unknown Rx predniSONE [Deltasone] 40 mg PO DAILY #10 tablet 08/19/17 Unknown Rx traMADoL [Ultram 50 MG tab] 50 mg PO Q8HR PRN #15 tablet 08/19/17 Unknown Rx ED Physical Exam - General Limitations: No Limitations - Other Other exam information: GENERAL: The patient is well-developed well-nourished. HENT: Normocephalic. Atraumatic. Patient has moist mucous membranes. EYES: Extraocular motions are intact. NECK: Supple. Trachea is midline. CHEST/LUNGS: Clear to auscultation. There is no respiratory distress noted. There is reproducible chest pain to palpation and with passive/active movement of the left upper extremity. HEART/CARDIOVASCULAR: Regular. There is no tachycardia. There is no murmur. ABDOMEN: Abdomen is soft, nontender. Patient has normal bowel sounds. SKIN: Skin is warm and dry. NEURO: The patient is awake, alert, and oriented. The patient is cooperative. The patient has no focal neurologic deficits. Normal speech. MUSCULOSKELETAL: There is no tenderness or deformity. There is no limitation range of motion. ED Course Vital Signs 06/13/20 06/13/20 04:17 04:20 Temperature 98.2 F Pulse Rate 70 Respiratory 15 16 Rate Blood Pressure 128/70 [Right] O2 Sat by Pulse 98 Oximetry ERIC score - Eric Score Age > 65: (1) Yes Aspirin use within the Past 7 Days: (0) No 3 or more CAD Risk Factors: (1) Yes 2 or more Angina events in past 24 hrs: (1) Yes Known CAD with more than 50% Stenosis: (0) No Elevated Cardiac Markers: (0) No ST Deviation Greater than 0.5mm: (0) No ERIC Score: 3 ED Medical Decision Making - Lab Data Result diagrams: 06/13/20 00:25 06/13/20 00:25 - EKG Data -: EKG Interpreted by Me EKG shows normal: sinus rhythm, axis (Left axis deviation), intervals (Prolonged ME interval), QRS complexes (Left anterior fascicular block, Q waves to the anteroseptal leads) Rate: normal - EKG Data When compared to previous EKG there are: previous EKG unavailable Interpretation: normal EKG - Radiology Data Radiology results: image reviewed interpreted by me: Chest x-ray does not show any acute process. There are no pleural effusions, obvious pneumonia and there is no pneumothorax. No significant cardiomegaly. - Medical Decision Making This patient presents to the emergency department with a complaint of some left- sided chest pain that only occurs with certain movements of his left upper extremity and/or torso. He has normal sounding heart and lung sounds to auscultation. EKG does not show any morphology consistent with ST elevation myocardial infarction or any dysrhythmia. Chest x-ray does not show any pneumonia, pleural effusions, pneumothorax, focal consolidation, or any other acute process. Patient's labs have been unremarkable including CBC, metabolic panel, and negative troponins x2. He was given a dose of Toradol and upon reevaluation is feeling improved. The patient does not have any risk factors for thromboembolic disease. He has good outpatient follow-up with Dr. Perez. For all these reasons the patient will be discharged home to follow-up with his primary care physician and coating engineer. He will return to the emergency department with any worsening of his symptoms or with any acute distress. Critical Care Time: No Critical care attestation.: If time is entered above; I have spent that time in minutes in the direct care of this critically ill patient, excluding procedure time. ED Disposition Clinical Impression: Atypical chest pain Disposition: - TO HOME OR SELFCARE Is pt being admited?: No Condition: Stable Instructions: Chest Pain (ED) Additional Instructions: Please follow-up with your primary care physician and coating engineer in the next few days. Return to the emergency department with any worsening of your symptoms, new or concerning symptoms not addressed during this current emergency department visit, or with any acute distress. Referrals: TRISTON YEPEZ MD [Primary Care Provider] - 3-5 Days DEN PEREZ MD [Staff Physician] - 3-5 Days Time of Disposition: 04:58
[2020-06-13] MEDS ORDERED: ASPIRIN 325 MG TAB ONE (02:48)
[2020-06-13 04:18] VITALS: BP 128/70
== END 2020-06-13 05:17 | disposition home or self-care (01) ==
LOC: ED 23:04
DX: R07.89 Other chest pain (principal); I10 Essential (primary) hypertension; K21.9 Gastro-esophageal reflux disease without esophagitis; M13.88 Other specified arthritis, other site; J44.9 Chronic obstructive pulmonary disease, unspecified; E11.9 Type 2 diabetes mellitus without complications; I25.2 Old myocardial infarction; Z79.899 Other long term (current) drug therapy; Z98.890 Other specified postprocedural states; Z88.1 Allergy status to other antibiotic agents; Z88.0 Allergy status to penicillin
CPT/HCPCS: 36415; 71045; 80048; 84484; 85025; 93005; 96372; 99283; J1885

== ENCOUNTER 2021-09-26 10:30 | Outpatient (CLI) | payer MEDICARE, OTHER ==
--- NOTE | 2021-09-26 11:51 | Cat Scan Report ---
CT ABDOMEN AND PELVIS WITHOUT CONTRAST INDICATION / CLINICAL INFORMATION: RIGHT UPPER QUADRANT PAIN R10.11. TECHNIQUE: Axial CT images were obtained through the abdomen and pelvis without IV contrast. Sagittal and robison l reformatted images. All CT scans at this location are performed using CT dose reduction for ALARA b y means of automated exposure control. COMPARISON: None available. FINDINGS: LOWER CHEST: No significant abnormality. LIVER: No significant abnormality. GALLBLADDER: No significant abnormality. BILE DUCTS: No significant abnormality. PANCREAS: No significant abnormality. SPLEEN: No significant abnormality. ADRENALS: No significant abnormality. RIGHT KIDNEY and URETER: Few tiny simple appearing cysts, otherwise unremarkable. LEFT KIDNEY and URETER: Few small simple appearing cysts, otherwise unremarkable. STOMACH and SMALL BOWEL: No significant abnormality. COLON: There is diffuse diverticulosis of the colon. No evidence for obstruction or acute inflammatio n. APPENDIX: No significant abnormality. PERITONEUM: No free fluid. No free air. No fluid collection. LYMPH NODES: No significant adenopathy. AORTA and ARTERIES: Mild atherosclerotic calcification without acute abnormality. IVC and VEINS: No significant abnormality. URINARY BLADDER: No significant abnormality. REPRODUCTIVE ORGANS: Prostatectomy changes are suspected. ADDITIONAL FINDINGS: None. SKELETAL SYSTEM: Moderate thoracolumbar spondylosis. No evidence for acute fracture or bone lesion. IMPRESSION: No acute inflammatory process. No clear explanation for right upper quadrant abdominal pain. Diverticulosis of the colon. Scattered bilateral renal cysts. Prostatectomy. Signer Name: Matty Gallegos Jr, MD Signed: 09/26/2021 11:46 AM Workstation Name: [id number]
== END 2021-09-26 10:31 | disposition home or self-care (01) ==
LOC: CT 10:30
PROVIDERS: ATTEND Urology
DX: N28.1 Cyst of kidney, acquired (principal); K57.30 Diverticulosis of large intestine without perforation or abscess without bleeding; I70.0 Atherosclerosis of aorta; M47.815 Spondylosis without myelopathy or radiculopathy, thoracolumbar region
CPT/HCPCS: 74176

== ENCOUNTER 2021-12-29 07:42 | Emergency (ER) | payer MEDICARE, OTHER ==
[2021-12-29 08:15] VITALS: BP 136/70
== END 2021-12-29 12:59 | disposition left against medical advice (07) ==
LOC: ED 07:42
DX: J45.909 Unspecified asthma, uncomplicated (principal); Z53.21 Procedure and treatment not carried out due to patient leaving prior to being seen by health care provider